=== PATIENT | male | born 1970 | race Caucasian/White ===

== ENCOUNTER 2020-10-19 12:44 | Emergency (ER) | payer BC ==
[2020-10-19 15:42] LABS: HEMOGLOBIN 13.8 gm/dl (14.0-17.5); RED BLOOD COUNT 4.87 M/UL (4.20-5.50); WHITE BLOOD COUNT 10.4 K/UL (4.5-11.0)
[2020-10-19 15:55] LABS: BORDETELLA PARAPERTUSSIS Not Detected (Not Detectd); BORDETELLA PERTUSSIS Not Detected (Not Detectd); CHLAMYDIA PNEUMONIAE Not Detected (Not Detectd); CORONAVIRUS HKU1 Not Detected (Not Detectd); CORONAVIRUS NL63 Not Detected (Not Detectd); CORONAVIRUS OC43 Not Detected (Not Detectd); CORONOAVIRUS 229E Not Detected (Not Detectd); HUMAN METAPNEUMOVIRUS Not Detected (Not Detectd); HUMAN RHINOVIRUS/ENTEROVIRUS Not Detected (Not Detectd); INFLUENZA A Not Detected (Not Detectd); INFLUENZA B Not Detected (Not Detectd); MYCOPLASMA PNEUMONIAE Not Detected (Not Detectd); PARAINFLUENZA VIRUS 1 Not Detected (Not Detectd); PARAINFLUENZA VIRUS 2 Not Detected (Not Detectd); PARAINFLUENZA VIRUS 3 Not Detected (Not Detectd); PARAINFLUENZA VIRUS 4 Not Detected (Not Detectd); RESPIRATORY SYNCYTIAL VIRUS Not Detected (Not Detectd)
[2020-10-19 16:09] LABS: BUN/CREATININE RATIO 27 (0-10)
[2020-10-19 17:52] LABS: SARS-CoV-2 NOT DETECTED (Not Detectd)
== END 2020-10-19 20:51 | disposition home or self-care (01) ==
LOC: ER1 12:44
PROVIDERS: Family Medicine
DX: R50.9 Fever, unspecified (principal); R11.2 Nausea with vomiting, unspecified; E11.9 Type 2 diabetes mellitus without complications; I10 Essential (primary) hypertension; F17.220 Nicotine dependence, chewing tobacco, uncomplicated; Z20.822 Contact with and (suspected) exposure to COVID-19
CPT/HCPCS: 71045; 80053; 81001; 82550; 82553; 83605; 83874; 84484; 85025; 87040; 87086; 87633; 93005; 99284; J7030

== ENCOUNTER → 2020-10-30 | Outpatient (CLI) | payer BC ==
[2020-10-30 07:51] LABS: HEMOGLOBIN 14.1 gm/dl (14.0-17.5); RED BLOOD COUNT 4.73 M/UL (4.20-5.50)
== END ==
LOC: LAB 07:25
PROVIDERS: Family Medicine
DX: E11.65 Type 2 diabetes mellitus with hyperglycemia (principal); R25.2 Cramp and spasm
CPT/HCPCS: 36415; 80061; 82043; 82550; 83036; 84443; 85025

== ENCOUNTER → 2021-03-03 | Outpatient (CLI) | payer BC ==
[2021-03-03 09:39] LABS: BUN/CREATININE RATIO 18 (0-10)
== END ==
LOC: LAB 08:24
PROVIDERS: Family Medicine
DX: R39.198 Other difficulties with micturition (principal); E11.9 Type 2 diabetes mellitus without complications
CPT/HCPCS: 36415; 80053; 80061; 83036; 84153

== ENCOUNTER → 2021-08-05 | Outpatient (CLI) | payer BC ==
[2021-08-06 10:14] LABS: MAGNESIUM 1.9 mg/dL (1.6-2.3)
[2021-08-06 11:15] LABS: A/G RATIO 1.3 (1.2-2.2); ALKALINE PHOSPHATASE, S 72 IU/L (44-121); ALT (SGPT) 24 IU/L (0-44); AST (SGOT) 29 IU/L (0-40); BILIRUBIN, TOTAL <0.2 mg/dL (0.0-1.2); BUN 18 mg/dL (6-24); BUN/CREATININE RATIO 20 (9-20); CALCIUM, SERUM 8.9 mg/dL (8.7-10.2); CARBON DIOXIDE, TOTAL 21 mmol/L (20-29); CHLORIDE, SERUM 101 mmol/L (96-106); CREATININE, SERUM 0.91 mg/dL (0.76-1.27); EGFR IF AFRICN AM 112 (>59); EGFR IF NONAFRICN AM 97 (>59); GLOBULIN, TOTAL 2.8 g/dL (1.5-4.5); GLUCOSE, SERUM 201 mg/dL (65-99); PROTEIN, TOTAL, SERUM 6.4 g/dL (6.0-8.5); SODIUM, SERUM 139 mmol/L (134-144)
== END ==
LOC: LAB 07:30
PROVIDERS: Internal Medicine Nephrology
DX: I10 Essential (primary) hypertension (principal); E87.6 Hypokalemia; E78.5 Hyperlipidemia, unspecified; E11.9 Type 2 diabetes mellitus without complications
CPT/HCPCS: 36415; 80053; 81001; 82088; 82384; 82436; 82533; 82550; 83735; 83835; 83970; 84133; 84244; 84300; 84443; 84585

== ENCOUNTER → 2021-11-18 | Outpatient (CLI) | payer BC ==
[2021-11-18 08:07] LABS: BUN/CREATININE RATIO 25 (0-10)
== END ==
LOC: LAB 07:07
PROVIDERS: Internal Medicine Nephrology
DX: E11.9 Type 2 diabetes mellitus without complications (principal)
CPT/HCPCS: 36415; 80053; 82570; 84156

== ENCOUNTER → 2021-11-30 | Outpatient (CLI) | payer BC | LOC: MRI 08:30 | DX: D35.00 Benign neoplasm of unspecified adrenal gland (principal); N28.1 Cyst of kidney, acquired | CPT/HCPCS: 74183; A9577 ==

== ENCOUNTER → 2021-12-14 | Outpatient (CLI) | payer BC, OTHER | LOC: LAB 07:02 | PROVIDERS: Internal Medicine Nephrology | DX: E11.9 Type 2 diabetes mellitus without complications (principal) | CPT/HCPCS: 36415; 80053; 82570; 84156 ==

== ENCOUNTER → 2022-02-14 | Outpatient (CLI) | payer BC | LOC: EXRD 02-10 10:30 | DX: N28.1 Cyst of kidney, acquired (principal) | CPT/HCPCS: 76775 ==

== ENCOUNTER → 2022-03-09 | Outpatient (CLI) | payer BC ==
[2022-03-09 08:58] LABS: BUN/CREATININE RATIO 23 (0-10)
== END ==
LOC: LAB 06:59
PROVIDERS: Internal Medicine Nephrology
DX: N17.9 Acute kidney failure, unspecified (principal); E87.6 Hypokalemia
CPT/HCPCS: 36415; 80053; 82570; 83735; 84156